=== PATIENT | male | born 1965 | race African-American/Black ===

== ENCOUNTER 2018-01-26 19:47 | Emergency (ER) | payer MEDICAID ==
[~2018-01-26] VITALS: Ht 177.8 cm; Wt 61.0 kg
[~2018-01-26 19:47] MED LIST: HYDR-519; PHEN-434
[2018-01-27] MEDS ORDERED: CLINDAMYCIN HCL 150MG CAPSULE PO ONE (01:15)
[2018-01-27 02:47] VITALS: BP 118/70
== END 2018-01-27 02:48 | disposition home or self-care (01) ==
LOC: ER 21:02
DX: L03.031 Cellulitis of right toe (principal); L89.150 Pressure ulcer of sacral region, unstageable; F12.10 Cannabis abuse, uncomplicated; Z79.899 Other long term (current) drug therapy; Z98.890 Other specified postprocedural states
CPT/HCPCS: 99283; Z7610; 99282

== ENCOUNTER 2018-12-05 17:33 | Emergency (ER) | payer MEDICAID ==
[~2018-12-05] VITALS: Ht 177.8 cm; Wt 66.0 kg
[2018-12-05] MEDS ORDERED: IBUPROFEN 400MG TABLET PO ONE (20:30)
[2018-12-05] MEDS ORDERED: ACETAMINOPHEN 325MG TABLET PO ONE (20:30)
[2018-12-05 21:34] LABS: CLARITY URINE CLOUDY (CLEAR); COLOR URINE YELLOW (YELLOW); KETONES URINE NEGATIVE (NEGATIVE); LEUKOCYTE ESTERASE URINE 2+ (NEGATIVE); NITRITE URINE POSITIVE (NEGATIVE); OCCULT BLOOD URINE NEGATIVE (NEGATIVE); PROTEIN URINE NEGATIVE (NEGATIVE); SPECIFIC GRAVITY URINE 1.018 (1.005-1.030)
[2018-12-05] MEDS ORDERED: CEPHALEXIN 250MG CAPSULE PO ONE (22:45)
[2018-12-05 23:24] VITALS: BP 121/81
== END 2018-12-06 00:36 | disposition home or self-care (01) ==
LOC: ER 17:33
DX: N39.0 Urinary tract infection, site not specified (principal); L89.152 Pressure ulcer of sacral region, stage 2; Z87.828 Personal history of other (healed) physical injury and trauma
CPT/HCPCS: 81003; 87086; 99284; Z7610

== ENCOUNTER 2019-02-07 18:39 | Emergency (ER) | payer MEDICAID ==
[~2019-02-07] VITALS: Ht 180.3 cm; Wt 69.0 kg
[2019-02-07] MEDS ORDERED: HYDROCODONE/ACETAMINOPHEN 5/325MG TABLET PO ONE (19:00)
[2019-02-07 22:30] VITALS: BP 122/76
== END 2019-02-07 22:45 | disposition home or self-care (01) ==
LOC: ER 18:39
DX: M71.21 Synovial cyst of popliteal space [Baker], right knee (principal)
CPT/HCPCS: 73562; 93971; 99284; L1830